=== PATIENT | male | born 1960 | race African-American/Black ===

== ENCOUNTER 2017-01-12 00:51 | Emergency (ER) | payer MEDICAID ==
[~2017-01-12] VITALS: Ht 172.7 cm; Wt 113.0 kg
[2017-01-12 00:56] VITALS: BP 0/0
[2017-01-12] MEDS ORDERED: EPINEPHRINE 0.1MG/ML (1:10,000) 10ML SYR ONE (06:00)
[2017-01-12] MEDS ORDERED: SODIUM BICARBONATE 7.5% 0.9 MEQ/ML 50ML SYR IV ONE (06:00)
[2017-01-12] MEDS ORDERED: CALCIUM CHLORIDE 1GM/10ML SYR IV ONE (06:00)
== END 2017-01-12 01:01 | disposition expired ==
LOC: EDBD 00:51 → ER 00:56
DX: I46.9 Cardiac arrest, cause unspecified (principal); S01.112A Laceration without foreign body of left eyelid and periocular area, initial encounter; I10 Essential (primary) hypertension; E11.9 Type 2 diabetes mellitus without complications; W22.03XA Walked into furniture, initial encounter; Y93.89 Activity, other specified; Y92.013 Bedroom of single-family (private) house as the place of occurrence of the external cause
CPT/HCPCS: 31500; 31525; 92950; 99285; J0171; J3490